=== PATIENT | male | born 1985 | race African-American/Black ===

== ENCOUNTER 2016-12-28 20:56 | Emergency (ER) | payer SELFPAY ==
[~2016-12-28] VITALS: Ht 182.9 cm; Wt 92.3 kg
[~2016-12-28 20:56] MED LIST: BACT800T5 PO; CEPH500C3 PO; IBUP800T23 PO; METH750T2 PO; MOBI15TA PO; TRAM50 PO
[2016-12-28 21:00] VITALS: BP 147/81; PULSE 81; RESP 16; TEMP 98.4; O2SAT 97
[2016-12-29] MEDS ORDERED: IBUP800T23 PO (09:18)
[2016-12-29] MEDS ORDERED: PRED-503 PO (09:18)
[2016-12-29] MEDS ORDERED: MOME17I EACH NARE (09:18)
[2016-12-29] MEDS ORDERED: ALBUAER3 INH (09:18)
[2016-12-29] MEDS ORDERED: BENZ100 PO (09:18)
== END 2016-12-28 21:52 | disposition left against medical advice (07) ==
LOC: NED 20:56
DX: Z53.21 Procedure and treatment not carried out due to patient leaving prior to being seen by health care provider (principal)
CPT/HCPCS: 99281

== ENCOUNTER 2016-12-29 08:43 | Emergency (ER) | payer SELFPAY ==
[~2016-12-29] VITALS: Ht 182.9 cm; Wt 95.0 kg
[2016-12-29 08:45] VITALS: BP 152/71; PULSE 77; RESP 16; TEMP 98; O2SAT 97
--- NOTE | 2016-12-29 09:14 | PD ---
HPI Chief Complaint: Respiratory Distress Time Seen by Provider: 09:14 Travel History International Travel<30 days: No Contact w/Intl Traveler<30days: No Traveled to known affect area: No History of Present Illness HPI 31-year-old male presents to the emergency Department with complaint of cough, wheezing, nasal congestion, throat irritation for the last few days. Has history of asthma and does not have an inhaler. Reports chest tightness and shortness of breath. Denies chest pain. Denies fever, chills, nausea, vomiting , abdominal pain. Has not taken any medications or tried any treatments to alleviate his symptoms. No one else with similar symptoms. No known allergies. History of asthma. Does not have primary care provider. No other modifying factors or associated signs and symptoms. PFSH Past Medical History Asthma: Yes Respiratory: Yes (ASTHMA) Social History Alcohol Use: No Tobacco Use: Yes Substance Use: No Allergies-Medications (Allergen,Severity, Reaction): Coded Allergies: No Known Allergies (Unverified , 12/29/16) Reported Meds & Prescriptions Reported Meds & Active Scripts Active Tessalon Perles (Benzonatate) 100 Mg Cap 100 Mg PO TID PRN Ibuprofen 800 Mg Tab 800 Mg PO Q6HR PRN Nasonex Nasal [place] (Mometasone Furoate) 50 Mcg/Act Naspr 2 [place] EACH NARE DAILY PRN Proair Hfa 8.5 GM Inh (Albuterol Sulfate) 90 Mcg/Act Aer 2 Puff INH Q4-6H PRN 108 mcg/actuation Deltasone (Prednisone) 20 Mg Tab 40 Mg PO DAILY 4 Days Review of Systems Except as stated in HPI: all other systems reviewed are Neg Physical Exam Narrative GENERAL: Well-nourished, well-developed male patient, in no acute distress; afebrile, nontoxic-appearing SKIN: Warm and dry. HEAD: Atraumatic. Normocephalic. EYES: Pupils equal and round. No scleral icterus. No injection or drainage. ENT: Mucosa pink and moist. No erythema or exudates. No uvular edema. No uvular , palatal, or tonsillar deviation. Airway patent. Nares without nasal blood, purulent drainage or septal hematoma. EARS: Bilateral pinnae and external canals appear within normal limits. Bilateral tympanic membranes without erythema, dullness or perforation. NECK: Trachea midline. No lymphadenopathy. CARDIOVASCULAR: Regular rate and rhythm. No murmur appreciated. RESPIRATORY: No accessory muscle use. Lungs with diffuse wheezing throughout to auscultation. Breath sounds equal bilaterally. No retractions or tachypnea. Audible wheezing noted. GASTROINTESTINAL: Abdomen soft, non-tender, nondistended. Hepatic and splenic margins not palpable. Bowel sounds are active 4 quadrants. MUSCULOSKELETAL: No obvious deformities. No clubbing. No cyanosis. No edema. NEUROLOGICAL: Awake and alert. Oriented 3. No obvious cranial nerve deficits. Motor grossly within normal limits. Normal speech. Moves all extremities. 5/5 strength to all extremities. PSYCHIATRIC: Appropriate mood and affect; insight and judgment normal. Data Data Last Documented VS Vital Signs Date Time Temp Pulse Resp B/P Pulse Ox O2 Delivery O2 Flow Rate FiO2 12/29/16 10:16 97 12/29/16 08:45 98.0 77 16 152/71 Room Air Orders Prednisone (Deltasone) (12/29/16 09:15) Albuterol-Ipratropium Neb (Duoneb Neb) (12/29/16 09:15) MDM Medical Decision Making Medical Screen Exam Complete: Yes Emergency Medical Condition: Yes Medical Record Reviewed: Yes Differential Diagnosis Viral illness, asthma exacerbation, upper respiratory infection Narrative Course 31-year-old male with history of asthma with asthma exacerbation secondary to viral illness. Patient is in no acute distress and without retractions or tachypnea. No wheezing noted. Diffuse wheezing noted on auscultation bilateral lung ovalle. Oxygen saturation is 97% on room air. Discussed viral illness and similar to management patient verbalized understanding and agreement with treatment plan. DuoNeb 1 and Deltasone ordered. 1035: Patient reports mild improvement in symptoms. His lungs are clear and equal throughout. He is requesting one more breathing treatment prior to discharge. Second DuoNeb administered in the ER. Pro-air inhaler, Deltasone, Tessalon Perles, ibuprofen prescribed for home. Patient is medically cleared and stable for discharge. Discussed reasons to return to the emergency department. Instructed patient to follow up with primary care provider. Patient agrees with treatment plan. The patients vital signs are stable and the patient is stable for outpatient follow-up and treatment. Patient discharged home, stable and in no acute distress. Diagnosis Primary Impression: Viral illness Additional Impression: Asthma exacerbation Referrals: Primary Care Physician Patient Instructions: Asthma (ED), Cold Symptoms (ED), General Instructions, Safe Use of Cough and Cold Medicines (ED) Departure Forms: Tests/Procedures, Work Release Enter return to work date: Dec 30, 2016 Additional Instructions: Use albuterol inhaler at home as needed for shortness of breath and wheezing Take oral steroids as prescribed and complete full course avoid asthma triggers such as second hand smoke, dust, known allergens Ibuprofen or Tylenol instructed not seen her for pain/fever [id number] antihistamines or decongestants as directed and as needed for symptom management Get plenty of sleep/rest Drink plenty of fluids to prevent dehydration; popsicles and Gatorade Use an air humidifier/turn off ceiling fans Follow-up with primary care provider within 1 to 2 days Return to emergency department immediately with worsening of symptoms Med/Other Pt SpecificInfo: Prescription(s) given Scripts Benzonatate (Tessalon Perles)100 Mg [id number] Mg PO TID PRN (COUGH) #20 CAP Ref 0 Prov:Tabatha Rubalcava 12/29/16 Ibuprofen 800 Mg [id number] Mg PO Q6HR PRN (PAIN) #30 TAB Ref 0 Prov:Tabatha Rubalcava 12/29/16 Mometasone Nasal [place] (Nasonex Nasal [place])50 Mcg/Act Naspr2 [place] EACH NARE DAILY PRN (NASAL CONGESTION) #1 BOTTLE Ref 0 Prov:Tabatha Rubalcava 12/29/16 Albuterol 8.5 GM Inh (Proair Hfa 8.5 GM Inh)90 Mcg/Act Aer2 Puff INH Q4-6H PRN ( SOB/WHEEZING) #1 INHALER Ref 0 108 mcg/actuation Prov:Tabatha Rubalcava 12/29/16 Prednisone (Deltasone)20 Mg Tab40 Mg PO DAILY 4 Days Ref 0 Prov:Tabatha Rubalcava 12/29/16 Disposition: 01 DISCHARGE HOME Condition: Stable Tabatha Rubalcava Dec 29, 2016 09:14
[2016-12-29] MEDS ORDERED: predniSONE 20 MG TAB PO ONE (09:15)
[2016-12-29] MEDS ORDERED: RESP: ALBUTEROL 2.5 MG/IPRATROPIUM 0.5 MG NEB (SCH) INH ONE ×2 (09:15→10:45)
[2016-12-29] MEDS ORDERED: IBUP800T23 PO (09:18)
[2016-12-29] MEDS ORDERED: ALBUAER3 INH (09:18)
[2016-12-29] MEDS ORDERED: BENZ100 PO (09:18)
[2016-12-29] MEDS ORDERED: PRED-503 PO (09:18)
[2016-12-29] MEDS ORDERED: MOME17I EACH NARE (09:18)
[2016-12-29 10:16] VITALS: O2SAT 97
== END 2016-12-29 10:57 | disposition home or self-care (01) ==
LOC: NEPB 08:43
DX: B34.9 Viral infection, unspecified (principal); J45.901 Unspecified asthma with (acute) exacerbation; Z72.0 Tobacco use
CPT/HCPCS: 94640; 94664; 99283; J7512